=== PATIENT | male | born 1980 | race Caucasian/White ===

== ENCOUNTER 2024-12-20 00:53 | Emergency (ER) | payer SELFPAY ==
[~2024-12-20] VITALS: Ht 170.2 cm; Wt 145.0 kg
[2024-12-20 00:55] VITALS: O2SAT 98
[2024-12-20 02:16] LABS: BASOPHILS % 0.5 % (0.0-2.0); HEMOGLOBIN. 12.6 g/dL (14.0-18.0); LYMPHOCYTES % 24.4 % (20.0-50.0); MEAN CORPUSCULAR HEMOGLOBIN 26.1 pg (28.0-32.0); MEAN CORPUSCULAR HGB CONC 31.5 g/dL (31.0-37.0); MEAN CORPUSCULAR VOLUME 82.6 fL (80.0-94.0); MEAN PLATELET VOLUME 8.8 fl (7.4-10.4); MONOCYTES % 9.7 % (2.0-8.0); NEUTROPHILS % 64.4 % (40.0-76.0); PLATELET 245 x1000/uL (130-400); RED BLOOD CELL COUNT 4.84 mill/uL (4.7-6.1); RED CELL DISTRIBUTION WIDTH 14.8 % (11.6-14.6); WHITE BLOOD COUNT 6.9 x1000/uL (4.5-11.0)
[2024-12-20 02:17] LABS: CHLORIDE 102 mEq/L (98-107); POTASSIUM 3.8 mEq/L (3.5-5.1); SODIUM 140 mEq/L (136-145)
[2024-12-20 02:18] LABS: CALCIUM 9.1 mg/dL (8.7-10.4); CARBON DIOXIDE 30 mEq/L (21-32)
[2024-12-20 02:23] LABS: CREATININE 0.8 mg/dL (0.6-1.3); GLUCOSE 103 mg/dL (70-105); UREA NITROGEN BLOOD 12 mg/dL (9-23)
[2024-12-20 02:25] LABS: TROPONIN I HIGH SENSITIVITY 4 ng/L (3.0-53)
[2024-12-20 03:53] VITALS: BP 132/60; PULSE 93; RESP 26; O2SAT 100
== END 2024-12-20 06:51 | disposition home or self-care (01) ==
LOC: ER 00:53
DX: R53.1 Weakness (principal); I25.2 Old myocardial infarction; R41.0 Disorientation, unspecified
CPT/HCPCS: 36415; 71045; 80048; 80320; 84484; 85025; 93005; 99285; G0480